=== PATIENT | female | born 1995 | race Caucasian/White ===

== ENCOUNTER → 2016-10-13 | Outpatient (CLI) | payer OTHER ==
--- NOTE | 2016-10-13 08:11 | US ---
EXAMINATION TYPE: US abdomen complete DATE OF EXAM: 10/13/2016 7:01 AM COMPARISON: NONE CLINICAL HISTORY: 21-year-old female R14.0 abdominal distention,R10.10 abdomen pain. Slender patient with mono like symptoms - tests have been negative for mono, but very lethargic with abd pain. TECHNIQUE: Multiple sonographic images of the abdomen are obtained. FINDINGS: Liver Length: 14.4 cm Gallbladder Wall: 0.2 cm CBD: 0.4 cm Spleen: 9.8 cm Right Kidney: 10.1 x 4.1 x 3.6 cm Left Kidney: 10.1 x 4.0 x 4.6 cm Pancreas: wnl Liver: Normal size without focal lesion. Gallbladder: No abnormal gallbladder distention, wall thickening, pericholecystic fluid, or shadowin g calculi. Evidence for sonographic Harden's sign: no CBD: Normal caliber Spleen: Normal size. Right Kidney: No hydronephrosis Left Kidney: No hydronephrosis. Upper IVC: Limited visualization. Abd Aorta: wnl IMPRESSION: Unremarkable sonographic examination of the abdomen.
== END | disposition home or self-care (01) ==
LOC: RADUSWWP 06:59
PROVIDERS: ATTEND Family Medicine
DX: R10.10 Upper abdominal pain, unspecified (principal); R14.0 Abdominal distension (gaseous)
CPT/HCPCS: 76700

== ENCOUNTER → 2016-12-07 | Outpatient (CLI) | payer OTHER ==
--- NOTE | 2016-12-08 09:25 | PN ---
This is a 21-year-old female patient I have taken care of for years for chronic insomnia. The patient was in a college in [facility] and she was doing well for quite some time. I hear that as of September 2016, the patient was unable to continue her studies. She started developing difficulties with concentration, diffuse body aches, fogginess, tiredness at all times and ongoing issues with insomnia. Based on that, the patient came back home and currently she is off college. 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 This diagnosis would go along with her chronic insomnia that I have treated for many years. Note that the patient was doing well while taking Ambien, 5 to 10 mg on a nightly basis. She has been averaging around 6 to 7 hours of sleep and she was able to function up until recently where symptoms of fibromyalgia has surfaced. She has occasional depressed. She was tried on Cymbalta and she had to quit because of side effects. Most recently she was started on amitriptyline 25 mg p.o. at bedtime and she is also taking Ambien 10 mg at bedtime. She is feeling slightly better. She has further investigation to be done at [facility]. She has chronic fatigue and diffuse body aches and trigger points consistent with fibromyalgia. BP is 130/84, pulse 90, respirations 16, temperature 97.6, saturation 99% on room air. Weight is 125. Height is 5 feet 4 inches. Neck size 12-1/2 inches and BMI is 21.2. GENERAL APPEARANCE: Calm, comfortable. HEENT: Negative for JVD. There is no goiter, neck mass. LUNGS: Clear to auscultation. HEART: Sounds are regular rate and rhythm. Normal S1, S2. No S3. No S4. No murmurs. ABDOMEN: Soft, nontender, no organomegaly. EXTREMITIES: No edema. No cyanosis or clubbing. IMPRESSION: 1. Chronic insomnia could be related to her fibromyalgia. 2. Fibromyalgia, currently on amitriptyline. 3. Chronic body aches secondary to above. 4. Chronic fatigue secondary to above. 5. Possible depression. PLAN: 1. Continue combination of Ambien and amitriptyline for insomnia and fibromyalgia. 2. Follow up at [facility] regarding further advice and treatment regarding fibromyalgia. 3. Will continue to follow.
== END | disposition home or self-care (01) ==
LOC: SLEEP 15:56
PROVIDERS: ATTEND Internal Medicine Critical Care Medicine
DX: F51.04 Psychophysiologic insomnia (principal); M79.7 Fibromyalgia; Z79.899 Other long term (current) drug therapy

== ENCOUNTER → 2017-11-29 | Outpatient (CLI) | payer OTHER ==
--- NOTE | 2017-11-29 20:37 | PN ---
PROGRESS NOTE This patient is coming in for annual check regarding her chronic insomnia. During the last visit the patient also told me that she was diagnosed having fibromyalgia. She is still going to college in [place] and she [place] for the summertime. Her sleep quality is improved and she is able to generate a good 6 hours of sleep while taking 10 mg of Ambien and sometimes she cuts it down to 5 mg. Whenever she is calm and relaxed and less stressed at the college, she is able to take 5 mg of Ambien and she is able to generate a good 5-7 hours of sleep. She is waking up refreshed and alert during the day. No morning headaches. No sleepwalking. Moriah Score is at 6. At times she uses Modafinil 200 mg to improve her level of alertness and concentration especially in school. Her pain level is under good control. No reported anxiety. No active depression. The patient was started on a combination of amitriptyline 50 mg and Cymbalta 20 mg by her physician chief of pathology. No active trigger points at this point in time. No sleep fragmentation. No nocturnal heartburn. No sleep paralysis. No hallucinations. No cataplexy. No unusual behaviors at night time. In addition, her weight has remained stable. The patient has no reported snoring. Overall level of alertness and daytime fatigue also improved. PHYSICAL EXAMINATION: BP is 108/58, pulse 86, respirations 16, temperature 97.4, saturation 99% on room air. Height is 5'0 ", weight is 118 and BMI 20.2. GENERAL APPEARANCE: Calm, comfortable in no acute distress. HEENT: Head is normocephalic, atraumatic. NECK: Supple. There is no JVD, no goiter or neck masses. LUNGS: Clear to auscultation. HEART: Sounds regular rate and rhythm. Normal S1, S2. No S3. No murmurs. ABDOMEN: Soft, nontender. No organomegaly. EXTREMITIES: No edema. No cyanosis or clubbing. SKIN is negative for wounds or ulceration. IMPRESSION: 1. Chronic insomnia currently stable and the patient is able to generate 6-7 hours of sleep while taking Ambien somewhere between 5-10 mg without any potential side affects. She is also on a combination of amitriptyline 50 mg and Cymbalta 20 mg given to her for symptoms of fibromyalgia. 2. Fibromyalgia under well control. 3. Chronic body aches. Inactive for now. 4. Chronic fatigue improved. 5. History of depression, likely. PLAN: Continue with Ambien. No obvious side effects. The patient is able to generate and maintain sleep. Ask the patient to gradually wean her Ambien requirements down to 5 mg if possible. Relaxation techniques were emphasized. Continue treatment of fibromyalgia. See me back in a year's time or earlier if needed. Treatment is successful for now. MMODL / IJN: [id number] /
== END | disposition home or self-care (01) ==
LOC: SLEEP 13:40
PROVIDERS: ATTEND Internal Medicine Critical Care Medicine
DX: F51.04 Psychophysiologic insomnia (principal); M79.7 Fibromyalgia; R53.82 Chronic fatigue, unspecified; Z79.899 Other long term (current) drug therapy

== ENCOUNTER → 2018-12-19 | Outpatient (CLI) | payer OTHER ==
--- NOTE | 2018-12-19 13:04 | PN ---
PROGRESS NOTE Samuel is coming in for an annual check. She has chronic insomnia, which is a comorbid insomnia. She has done very well with 10 mg of Ambien, unable to cut it down further. As her insomnia recurs with take of Ambien at bedtime, she feels great and she is waking up refreshed and alert. No sleepwalking or sleep talking. No sleep eating disorder. She is also under adequate treatment for fibromyalgia. No weight gain. She is exercising. She follows a good sleep hygiene measure. PHYSICAL EXAMINATION: VITAL SIGNS: BP is 107/73, pulse 80, respirations 16, temperature 98.1, saturation 97% on room air, weight is 126. GENERAL APPEARANCE: Calm, comfortable. HEAD: Atraumatic, normocephalic. NECK: Supple. No JVD. No goiter or neck mass. LUNGS: Clear to auscultation. HEART: Sounds are regular rate and rhythm. Normal S1, S2. No S3. No murmurs. ABDOMEN: Soft, nontender. No organomegaly. EXTREMITIES: No edema. No cyanosis or clubbing. IMPRESSION: 1. Chronic insomnia, well treated with Ambien. She is also on a combination of amitriptyline and Cymbalta at her same doses. 2. Chronic fibromyalgia. 3. Chronic body aches, inactive and stable. 4. Chronic fatigue, improved. 5. History of depression, currently inactive and stable. PLAN: 1. Renew Ambien. 2. Keep same medications. 3. We will continue to follow. MMODL / IJN: [id number] /
== END ==
LOC: SLEEP 11:31
PROVIDERS: ATTEND Internal Medicine Critical Care Medicine
DX: G47.00 Insomnia, unspecified (principal); M79.7 Fibromyalgia; R53.82 Chronic fatigue, unspecified; F32.9 Major depressive disorder, single episode, unspecified

== ENCOUNTER → 2020-08-26 | Outpatient (CLI) | payer OTHER ==
--- NOTE | 2020-08-26 12:53 | PN ---
PROGRESS NOTE This patient is very well known to me. She is currently 25. I have treated her over the years for chronic symptoms of insomnia. The patient has also various comorbidities significant of which is chronic fibromyalgia and chronic fatigue and history of depression. She is still in college. She is completing her master's degree through a college in [place] and because of the ongoing pandemic. The patient is doing remote education. She is living in [place] with her parents. For now, she has regulated her sleep cycle. She is going to bed around 9 to 10 p.m. and she is waking up from sleep at around 6 a.m. in the morning and she is averaging 7 to 8 hours of sleep. At times it takes her up to 45 minutes to fall asleep. For the most part, she is able to generate and maintain sleep without any major difficulties. During the day, she was feeling very much tired and fatigued and loss in energy and concentration. For that reason, she was treated with a combination of Provigil 200 mg twice a day and on and off she takes Adderall 10 mg b.i.d. as needed to improve her level of alertness and stimulation. No reported side effect of this current regimen. No sleepwalking. No sleep talking. No sleep eating disorder. No falls. No episodes of waking up in the middle of the night with drowsiness. No confusion. No altered mentation. As for the stimulants, no symptoms of tachycardia or hypertension. No headaches. No altered mental status. She has history of chronic pain and depression and she is taking amitriptyline 50 mg at bedtime. In addition to Cymbalta 60 mg p.o. twice a day and she is also on oxcarbazepine at the dose of 300 mg p.o. once a day. No weight gain. No snoring. No alcohol drinking. No substance abuse. No other medical issues or any new onset comorbidities since her last evaluation back in 2019. PHYSICAL EXAMINATION: VITAL SIGNS: Her current vital signs are blood pressure 116/77, pulse 87, respirations 16, temperature 97.7 saturation 99% on room air. Current [place] score is at 5 with a body mass index of 22.6. Height is 5 feet 4 inches weight is 132. GENERAL APPEARANCE: She is calm, comfortable, in no acute distress. HEAD: Atraumatic, normocephalic. NECK: Supple. There is no JVD. No goiter or neck masses. LUNGS: Clear to auscultation. HEART: Heart sounds are regular rate and rhythm. Normal S1, S2. No S3, S4. No murmurs. ABDOMEN: Soft, nontender. No organomegaly. EXTREMITIES: No edema. No cyanosis or clubbing. NEUROLOGIC: Awake, alert. There is no focal neurological deficits. PSYCHIATRY: Negative for anxiety or depression. IMPRESSION: 1. Chronic comorbid insomnia, adequately treated. The patient is taking 10 mg of Ambien at bedtime without any major side effects and she also takes amitriptyline 50 mg at bedtime, which helps her sleep induction at the same time she is taking this for chronic pain and symptoms of depression. No cholinergic side effects of amitriptyline at this point in time. 2. Chronic fibromyalgia. 3. Chronic fatigue and loss in attention and tiredness and sleepiness during the day. The patient is taking Provigil 200 mg p.o. twice a day for stimulation and she is taking Adderall on an as-needed basis 10 mg b.i.d. without any side effects. 4. Chronic pain involving the entire body, maintained on amitriptyline, Cymbalta, and oxcarbazepine. 5. History of depression, currently inactive and stable. PLAN: Overall the patient's symptoms are adequately controlled with the above-mentioned regimen. Her functionality is adequate. She is able to perform activities of day-to- day life and she is able to participate in her school activities without any major difficulties. I am going to refill the Ambien for now. Her sleep hygiene measures are adequate. No side effects with the above-mentioned treatment. We will continue to follow and make further recommendations based on her progress. Her current primary care physician is Amy Lester, and a letter will be sent to her. I will see her periodically in the sleep center along with the primary care physician. MMODL / IJN: [id number] /
== END | disposition home or self-care (01) ==
LOC: SLEEP 10:02
PROVIDERS: ATTEND Internal Medicine Critical Care Medicine
DX: G47.00 Insomnia, unspecified (principal); G89.29 Other chronic pain; R53.82 Chronic fatigue, unspecified; Z86.59 Personal history of other mental and behavioral disorders

== ENCOUNTER → 2021-12-15 | Outpatient (CLI) | payer OTHER ==
--- NOTE | 2021-12-15 16:04 | P.PN ---
Subjective Progress Note Date: 12/15/21 26-year-old girl who is coming to me for routine check. This is her annual follow-up. Her last evaluation was on 08/23/2020. I'll see this patient for chronic comorbid insomnia. In addition, the patient has chronic fibromyalgia and chronic fatigue syndrome. The patient was going through school and the patient has completed her masters degree and she is back home and [place]. He is engaged and she is getting next week. Note that she has had issues with insomnia for many years. The patient is taking a combination of Ambien 10 mg and she also has taken amitriptyline 50 mg at bedtime. She has no issues in the using a maintaining sleep. She is sleeping a good 7 hours without any major difficulties. No issues with sleep induction and maintenance. No significant weight gain. She is not expressing any side effects related to the medication. While in school, she required stimulants to help her with alertness and concentration and the patient was taking Adderall 10 mg twice a day in combination with Provigil. Currently she is off the stimulants and she is feeling well. As for pain, this is well controlled with Cymbalta and she has no mood disorder this point in time. Her depression is well sedated and patient is a very happy mood as the patient is getting engaged. No other new onset comorbidities. No side effects related to the drugs. No excessive intake of stimulants. No substance abuse. No alcoholism. No trauma. No seizure activity. No atelectasis in lower extremities. No snoring. No sleepwalking P no sleep talking. No parasomnias. Current medication includes Ambien 10 mg, levothyroxine 100 g, Cymbalta 60 mg, amitriptyline 50 mg, oxcarbamazepine 300 mg Objective - Exam BP is 118/81 with a pulse of 98 and respirations 16 and temperature 90.3 and oxygen saturations around 98% The patient appeared well nourished and normally developed. Vital signs as documented. Head exam is unremarkable. No scleral icterus or corneal arcus noted. Neck is without jugular venous distension, thyromegaly, or carotid bruits. Carotid upstrokes are brisk bilaterally. Lungs are clear to auscultation and percussion. Cardiac exam reveals the PMI to be normally sized and situated. Rhythm is regular. First and second heart sounds normal. No murmurs, rubs or gallops. Abdominal exam reveals normal bowel sounds, no masses, no organomegaly and no aortic enlargement. Extremities are nonedematous and both femoral and pedal pulses are normal. Assessment and Plan Plan: Chronic comorbid insomnia, was treated with a combination of Ambien and amitriptyline. Ambien is a dose of 10 mg and amitriptyline is at a dose of 50 mg and the patient is able to induce and maintain sleep without any major difficulties. No major hypersomnia and sleepiness. No side effects related to the drugs Chronic fibromyalgia Chronic fatigue Chronic pain History of depression was treated for now Plan Patient is well treated for now. Her comorbid conditions are stable. Her sleep quality is good and she is able to induce and maintain sleep without any major difficulties. Good sleep hygiene measures. Continue same treatment and Ambien refills were given to her, total of 90 days with no refills. No side effects. We'll continue to follow. No other active issues for now.
== END ==
LOC: SLEEP 15:34
PROVIDERS: ATTEND Internal Medicine Critical Care Medicine
DX: G47.00 Insomnia, unspecified (principal); G89.29 Other chronic pain; F32.A Depression, unspecified; M79.7 Fibromyalgia; R53.82 Chronic fatigue, unspecified; Z79.899 Other long term (current) drug therapy